=== PATIENT | male | born 1990 | race Caucasian/White ===

== ENCOUNTER 2017-04-04 00:14 | Emergency (ER) | payer SELFPAY ==
[~2017-04-04] VITALS: Ht 182.9 cm; Wt 68.2 kg
[~2017-04-04 00:14] MED LIST: ADDERALL 30 MG30 MG PO; ADDERALL XR30 MG PO; ADDERALL30 MG PO; ALEVE 220MG220 MG PO; BACLOFEN10 M1 PO; BACTRIM 400 MG-1 TAB; BACTRIM DS 8001 TAB PO; CARAFATE1 GM PO; CEPHALEXIN500 M1 PO; CIPRO 500MG TA500 MG PO; CLEOCIN HC150 MG/CAP PO; CLEOCIN HCL300 MG PO; CLINDAMYCIN300 MG PO; ED NORCO 56 UDTAB/BO PO; FLEXERIL 1010 MG/TAB PO; FLEXERIL10 MG PO; FLOMAX0.4 MG PO; GABLOFEN0.05 MG/ML; GOOD NEIGHBOR200 M1 PO; IBUPAIN-200200 MG PO; KETOROLAC10 MG PO; KLONOPIN 1MG1 MG PO; LIORESAL 1010 MG/TAB PO; MIRALAX17 GM/DOSE PO; MOTRIN 800800 MG/TAB PO; NORCO 325 MG-51 TA1 PO; NORCO 325 MG-51 TAB PO; NORCO 325 MG-7.1 TAB PO; PERCOCET 325 MG1 TA2 PO; PERCOCET 325 MG1 TA4 PO; PERCOCET 325 MG1 TA5 PO; PRILOSEC 20MG20 MG; PRILOSEC 20MG20 MG PO; SENOKOT-S TAB1 UDTAB PO; SKELAXIN 4400 MG/TAB PO; SKELAXIN400 MG PO; TORADOL10 MG PO; TYLENOL 500MG500 MG PO; TYLENOL PM EXTR1 CAP PO; ULTRAM 50MG TAB50 MG PO; VENTOLIN0.09 MG IH; XANAX0.5 MG PO; ZOFRAN ODT8 MG PO
[2017-04-04 02:53] VITALS: BP 124/80
== END 2017-04-04 02:53 | disposition home or self-care (01) ==
LOC: ED 00:14
DX: R07.89 Other chest pain (principal); F15.10 Other stimulant abuse, uncomplicated; M79.605 Pain in left leg; M79.604 Pain in right leg; G89.29 Other chronic pain; F20.9 Schizophrenia, unspecified; R11.0 Nausea; R00.2 Palpitations; R53.1 Weakness; R42 Dizziness and giddiness; R06.02 Shortness of breath; F17.200 Nicotine dependence, unspecified, uncomplicated; R10.812 Left upper quadrant abdominal tenderness; R10.811 Right upper quadrant abdominal tenderness
CPT/HCPCS: J1885

== ENCOUNTER 2017-04-11 04:41 | Emergency (ER) | payer SELFPAY ==
[~2017-04-11] VITALS: Ht 182.9 cm; Wt 68.2 kg
[2017-04-11 05:56] VITALS: BP 131/91
== END 2017-04-11 05:56 | disposition home or self-care (01) ==
LOC: ED 04:41
DX: R42 Dizziness and giddiness (principal); T42.4X5A Adverse effect of benzodiazepines, initial encounter; F32.9 Major depressive disorder, single episode, unspecified; F41.9 Anxiety disorder, unspecified; F20.9 Schizophrenia, unspecified

== ENCOUNTER 2017-08-19 01:37 | Emergency (ER) | payer SELFPAY ==
[~2017-08-19] VITALS: Ht 182.9 cm; Wt 68.3 kg
[2017-08-19] MEDS ORDERED: KLONOPIN 1MG1 MG PO (02:19)
[2017-08-19 02:25] VITALS: BP 120/73
== END 2017-08-19 02:20 | disposition home or self-care (01) ==
LOC: ED 01:37
DX: R11.0 Nausea (principal); T42.4X6A Underdosing of benzodiazepines, initial encounter; Z91.138 Patient's unintentional underdosing of medication regimen for other reason; R20.2 Paresthesia of skin; Z76.0 Encounter for issue of repeat prescription; F32.9 Major depressive disorder, single episode, unspecified; G89.29 Other chronic pain

== ENCOUNTER 2017-10-11 19:16 | Emergency (ER) | payer SELFPAY ==
[~2017-10-11] VITALS: Ht 182.9 cm; Wt 68.2 kg
[2017-10-11 20:12] LABS: URINE APPEARANCE CLEAR; URINE BILIRUBIN NEGATIVE (NEGATIVE); URINE BLOOD NEGATIVE (NEGATIVE); URINE COLOR YELLOW; URINE GLUCOSE NEGATIVE (NEGATIVE); URINE KETONE NEGATIVE (NEGATIVE); URINE LEUKOCYTE ESTERASE NEGATIVE (NEGATIVE); URINE NITRATE NEGATIVE (NEGATIVE); URINE PROTEIN(semi-quant) NEGATIVE (NEGATIVE); URINE UROBILINOGEN NORMAL (NORMAL); URINE WBC 0-1 /hpf (0-3)
[2017-10-11 20:41] LABS: HEMATOCRIT 44.8 % (42.0-52.0); MEAN CELL VOLUME 94 fl (78-100); MEAN CORPUSCULAR HEMOGLOBIN 31 pg (27-31); MEAN CORPUSCULAR HGB CONC 34 g/dL (33-37); MEAN PLATELET VOLUME 9.4 fl (7.4-10.4); PLATELET COUNT 279 K/mm3 (130-400); RED BLOOD COUNT 4.77 M/mm3 (4.20-5.60); RED CELL DISTRIBUTION WIDTH 12.9 % (11.5-14.5); WHITE BLOOD COUNT 6.5 K/mm3 (4.8-10.8)
[2017-10-11 21:17] LABS: LYMPHOCYTE 15 % (20-51); NEUTROPHILS 73 % (42-75)
[2017-10-11 21:18] LABS: ALBUMIN 3.3 g/dL (3.5-5.0); CALCIUM 8.1 mg/dL (8.4-10.2); POTASSIUM 4.2 mmol/L (3.6-5.0); TOTAL BILIRUBIN 0.3 mg/dL (0.2-1.3); TOTAL PROTEIN 5.7 g/dL (6.3-8.2)
[2017-10-11 21:18] LABS: MONOCYTE 9 % (3-10)
[2017-10-11 21:56] VITALS: BP 110/80
== END 2017-10-11 21:56 | disposition home or self-care (01) ==
LOC: ED 19:16
PROVIDERS: Nurse Practitioner Primary Care
DX: N23 Unspecified renal colic (principal); Z87.442 Personal history of urinary calculi; F32.9 Major depressive disorder, single episode, unspecified; F20.9 Schizophrenia, unspecified; Z88.0 Allergy status to penicillin; F17.200 Nicotine dependence, unspecified, uncomplicated; Z88.5 Allergy status to narcotic agent; Z88.8 Allergy status to other drugs, medicaments and biological substances
CPT/HCPCS: J1885; J2270; J7030; Q9967

== ENCOUNTER 2017-10-30 09:03 | Emergency (ER) | payer SELFPAY ==
[2017-10-30] MEDS ORDERED: CLEOCIN HCL300 MG PO (09:53)
[2017-10-30 10:31] VITALS: BP 128/79
== END 2017-10-30 10:05 | disposition home or self-care (01) ==
LOC: ED 09:03
DX: K04.6 Periapical abscess with sinus (principal); Z88.5 Allergy status to narcotic agent; Z88.0 Allergy status to penicillin; Z88.8 Allergy status to other drugs, medicaments and biological substances; F99 Mental disorder, not otherwise specified

== ENCOUNTER 2017-12-21 19:56 | Emergency (ER) | payer SELFPAY ==
[~2017-12-21] VITALS: Ht 182.9 cm; Wt 70.3 kg
[2017-12-21 21:26] VITALS: BP 114/82
== END 2017-12-21 21:26 | disposition home or self-care (01) ==
LOC: ED 19:56
DX: S61.412A Laceration without foreign body of left hand, initial encounter (principal); W26.0XXA Contact with knife, initial encounter; Y92.009 Unspecified place in unspecified non-institutional (private) residence as the place of occurrence of the external cause; Z88.0 Allergy status to penicillin; Z88.8 Allergy status to other drugs, medicaments and biological substances; Z88.5 Allergy status to narcotic agent; Z87.11 Personal history of peptic ulcer disease; F32.9 Major depressive disorder, single episode, unspecified; F20.9 Schizophrenia, unspecified

== ENCOUNTER 2018-05-01 13:47 | Emergency (ER) | payer SELFPAY ==
[~2018-05-01] VITALS: Ht 182.9 cm; Wt 68.2 kg
[2018-05-01] MEDS ORDERED: DEXTROAMPH SACC30 MG PO (13:56)
[2018-05-01 14:57] LABS: BASO # 0.1 (0.02-0.10); EOS # 0.2 (0.04-0.40); EOS % 3.8 % (0.0-4.0); HEMATOCRIT 43.5 % (42.0-52.0); HEMOGLOBIN 15.2 g/dL (13.5-18.0); LYMPH# 1.5 (1.50-4.00); MEAN CELL VOLUME 93 fl (78-100); MEAN CORPUSCULAR HEMOGLOBIN 32 pg (27-31); MEAN CORPUSCULAR HGB CONC 35 g/dL (33-37); MEAN PLATELET VOLUME 9.6 fl (7.4-10.4); MONO # 0.6 (0.20-0.80); NEU # 2.7 (1.40-6.50); PLATELET COUNT 289 K/mm3 (130-400); RED CELL DISTRIBUTION WIDTH 12.5 % (11.5-14.5)
[2018-05-01 15:04] LABS: ALBUMIN 3.6 g/dL (3.5-5.0); BUN/CREATININE RATIO 9.4 (6.0-26.0); CALCIUM 8.6 mg/dL (8.4-10.2); TOTAL BILIRUBIN 0.3 mg/dL (0.2-1.3); TOTAL PROTEIN 6.1 g/dL (6.3-8.2)
[2018-05-01] MEDS ORDERED: ZOFRAN ODT4 MG PO (16:37)
[2018-05-01 17:16] VITALS: BP 114/71
== END 2018-05-01 17:00 | disposition home or self-care (01) ==
LOC: ED 13:47
PROVIDERS: Nurse Practitioner Primary Care
DX: R11.2 Nausea with vomiting, unspecified (principal); F17.200 Nicotine dependence, unspecified, uncomplicated; Z79.899 Other long term (current) drug therapy
CPT/HCPCS: J2405; J7030

== ENCOUNTER 2018-08-01 01:44 | Emergency (ER) | payer SELFPAY ==
[~2018-08-01 01:44] MED LIST changes: +DEXTROAMPH SACC30 MG PO; +ZOFRAN ODT4 MG PO
[2018-08-01] MEDS ORDERED: CLINDAMYCIN 300MG PO (02:22)
[2018-08-01 02:25] VITALS: BP 119/79
[2018-08-02] MEDS ORDERED: CLEOCIN HCL300 MG PO (01:07)
[2018-08-02] MEDS ORDERED: PROMETHAZINE12.5 M5 PO (01:50)
== END 2018-08-01 02:25 | disposition home or self-care (01) ==
LOC: ED 01:44
DX: K04.6 Periapical abscess with sinus (principal); K02.63 Dental caries on smooth surface penetrating into pulp; F17.200 Nicotine dependence, unspecified, uncomplicated; F20.9 Schizophrenia, unspecified; F32.9 Major depressive disorder, single episode, unspecified; Z79.899 Other long term (current) drug therapy; Z88.0 Allergy status to penicillin

== ENCOUNTER 2018-08-02 00:49 | Emergency (ER) | payer SELFPAY ==
[~2018-08-02] VITALS: Ht 182.9 cm; Wt 68.2 kg
[~2018-08-02 00:49] MED LIST changes: +CLINDAMYCIN 300MG PO
[2018-08-02 01:05] VITALS: BP 119/77
[2018-08-02] MEDS ORDERED: CLEOCIN HCL300 MG PO (01:07)
[2018-08-02] MEDS ORDERED: PROMETHAZINE12.5 M5 PO (01:50)
== END 2018-08-02 01:58 | disposition home or self-care (01) ==
LOC: ED 00:49
DX: B34.9 Viral infection, unspecified (principal); K02.9 Dental caries, unspecified; F32.9 Major depressive disorder, single episode, unspecified; F20.9 Schizophrenia, unspecified; F17.200 Nicotine dependence, unspecified, uncomplicated
CPT/HCPCS: J2550

== ENCOUNTER 2018-11-09 00:42 | Emergency (ER) | payer SELFPAY ==
[~2018-11-09 00:42] MED LIST changes: +PROMETHAZINE12.5 M5 PO
[2018-11-09 00:45] VITALS: BP 112/81
[2018-11-09] MEDS ORDERED: NORCO 325 MG-51 TA1 PO (01:25)
[2018-11-09] MEDS ORDERED: CLEOCIN HCL300 MG PO (01:25)
== END 2018-11-09 01:35 | disposition home or self-care (01) ==
LOC: ED 00:42
DX: K02.9 Dental caries, unspecified (principal); K05.219 Aggressive periodontitis, localized, unspecified severity; K05.10 Chronic gingivitis, plaque induced; K25.9 Gastric ulcer, unspecified as acute or chronic, without hemorrhage or perforation; F17.210 Nicotine dependence, cigarettes, uncomplicated

== ENCOUNTER 2019-05-02 00:18 | Emergency (ER) | payer MEDICAID ==
[~2019-05-02 00:18] MED LIST changes: +AMPHETAMINE SAL15 M1 PO; +CIPRO500 M1 PO; +ONDANSETRON ODT8 MG PO
[2019-05-02] MEDS ORDERED: BUSPAR 15MG TAB15 MG PO (00:45)
[2019-05-02] MEDS ORDERED: CEPHALEXIN500 M1 PO (01:18)
[2019-05-02 01:30] VITALS: BP 118/85
== END 2019-05-02 01:30 | disposition home or self-care (01) ==
LOC: ED 00:18
DX: K02.9 Dental caries, unspecified (principal); F32.9 Major depressive disorder, single episode, unspecified; F20.9 Schizophrenia, unspecified; F17.210 Nicotine dependence, cigarettes, uncomplicated
CPT/HCPCS: J1885

== ENCOUNTER 2020-01-30 19:53 | Emergency (ER) | payer MEDICAID ==
[~2020-01-30 19:53] MED LIST changes: +BUSPAR 15MG TAB15 MG PO
[2020-01-30 21:02] LABS: EOS # 0.2 (0.04-0.40); HEMATOCRIT 40.8 % (42.0-52.0); HEMOGLOBIN 13.8 g/dL (13.5-18.0); LYMPH# 1.5 (1.50-4.00); MEAN CELL VOLUME 93 fl (78-100); MEAN CORPUSCULAR HEMOGLOBIN 32 pg (27-31); MEAN CORPUSCULAR HGB CONC 34 g/dL (33-37); MONO # 0.8 (0.20-0.80); NEU # 4.4 (1.40-6.50); PLATELET COUNT 290 K/mm3 (130-400); RED BLOOD COUNT 4.38 M/mm3 (4.20-5.60); RED CELL DISTRIBUTION WIDTH 12.8 % (11.5-14.5); WHITE BLOOD COUNT 6.9 K/mm3 (4.8-10.8)
[2020-01-30 21:16] LABS: ALBUMIN 4.2 g/dL (3.5-5.0); POTASSIUM 3.8 mmol/L (3.5-5.1)
[2020-01-30 21:17] LABS: CALCIUM 9.8 mg/dL (8.3-10.5)
[2020-01-30 21:18] LABS: TOTAL PROTEIN 6.4 g/dL (6.4-8.3)
[2020-01-30 21:20] LABS: TOTAL BILIRUBIN 0.3 mg/dL (0.2-1.2)
[2020-01-30 22:04] LABS: URINE APPEARANCE CLOUDY; URINE BILIRUBIN NEGATIVE (NEGATIVE); URINE BLOOD 250 ery/uL (NEGATIVE); URINE COLOR BLOODY; URINE GLUCOSE NEGATIVE (NEGATIVE); URINE KETONE NEGATIVE (NEGATIVE); URINE LEUKOCYTE ESTERASE TRACE (NEGATIVE); URINE NITRATE NEGATIVE (NEGATIVE); URINE PROTEIN(semi-quant) TRACE mg/dL (NEGATIVE); URINE UROBILINOGEN NORMAL (NORMAL)
[2020-01-30 23:40] VITALS: BP 118/71
== END 2020-01-30 23:40 | disposition home or self-care (01) ==
LOC: ED 19:53
PROVIDERS: Nurse Practitioner Family
DX: N23 Unspecified renal colic (principal); F20.9 Schizophrenia, unspecified; F32.9 Major depressive disorder, single episode, unspecified; F17.210 Nicotine dependence, cigarettes, uncomplicated; Z88.0 Allergy status to penicillin; Z87.442 Personal history of urinary calculi
CPT/HCPCS: J1885; J2270; J2405; J7030

== ENCOUNTER 2020-06-04 16:30 | Emergency (ER) | payer MEDICAID ==
[2020-06-04 17:06] LABS: BASO # 0.1 (0.02-0.10); EOS # 0.3 (0.04-0.40); EOS % 4.8 % (0.0-4.0); HEMOGLOBIN 16.7 g/dL (13.5-18.0); LYMPH# 1.1 (1.50-4.00); MEAN CELL VOLUME 91 fl (78-100); MEAN CORPUSCULAR HEMOGLOBIN 31 pg (27-31); MEAN CORPUSCULAR HGB CONC 34 g/dL (33-37); MONO # 0.6 (0.20-0.80); NEU # 3.3 (1.40-6.50); PLATELET COUNT 312 K/mm3 (130-400); RED BLOOD COUNT 5.36 M/mm3 (4.20-5.60); RED CELL DISTRIBUTION WIDTH 12.6 % (11.5-14.5); WHITE BLOOD COUNT 5.2 K/mm3 (4.8-10.8)
[2020-06-04 17:15] LABS: ALBUMIN 4.5 g/dL (3.5-5.0)
[2020-06-04 17:16] LABS: POTASSIUM 4.3 mmol/L (3.5-5.1); SODIUM 140 mmol/L (136-145)
[2020-06-04 17:17] LABS: CALCIUM 9.2 mg/dL (8.3-10.5)
[2020-06-04 17:18] LABS: GLUCOSE 96 mg/dL (75-110); TOTAL PROTEIN 7.3 g/dL (6.4-8.3)
[2020-06-04 17:19] LABS: CARBON DIOXIDE 27 mmol/L (22-29)
[2020-06-04 17:20] LABS: TOTAL BILIRUBIN 0.2 mg/dL (0.2-1.2)
[2020-06-04 17:23] LABS: AST-SGOT 20 U/L (5-34)
[2020-06-04 17:25] LABS: ALT/SGPT 35 U/L (0-55)
[2020-06-04 17:31] LABS: TROPONIN-I < 0.03 ng/mL (<0.030)
[2020-06-04 18:03] VITALS: BP 108/81
== END 2020-06-04 18:08 | disposition home or self-care (01) ==
LOC: ED 16:30
PROVIDERS: Nurse Practitioner Family
DX: R06.02 Shortness of breath (principal); F41.9 Anxiety disorder, unspecified; F17.210 Nicotine dependence, cigarettes, uncomplicated

== ENCOUNTER 2020-06-23 03:15 | Emergency (ER) | payer MEDICAID ==
[~2020-06-23] VITALS: Ht 182.9 cm; Wt 75.1 kg
[2020-06-23 03:21] VITALS: BP 133/94
[2020-06-23 03:57] LABS: BASO # 0.1 (0.02-0.10); EOS # 0.3 (0.04-0.40); EOS % 4.4 % (0.0-4.0); HEMATOCRIT 47.4 % (42.0-52.0); HEMOGLOBIN 16.5 g/dL (13.5-18.0); LYMPH# 1.8 (1.50-4.00); MEAN CELL VOLUME 92 fl (78-100); MEAN CORPUSCULAR HEMOGLOBIN 32 pg (27-31); MEAN CORPUSCULAR HGB CONC 35 g/dL (33-37); MEAN PLATELET VOLUME 9.1 fl (7.4-10.4); MONO # 0.8 (0.20-0.80); NEU # 3.9 (1.40-6.50); PLATELET COUNT 331 K/mm3 (130-400); RED BLOOD COUNT 5.13 M/mm3 (4.20-5.60); RED CELL DISTRIBUTION WIDTH 12.9 % (11.5-14.5); WHITE BLOOD COUNT 6.9 K/mm3 (4.8-10.8)
[2020-06-23 04:00] LABS: ALBUMIN 4.4 g/dL (3.5-5.0); POTASSIUM 4.2 mmol/L (3.5-5.1)
[2020-06-23 04:01] LABS: CALCIUM 9.6 mg/dL (8.3-10.5)
[2020-06-23 04:03] LABS: TOTAL PROTEIN 6.9 g/dL (6.4-8.3)
[2020-06-23 04:04] LABS: TOTAL BILIRUBIN 0.2 mg/dL (0.2-1.2)
[2020-06-23 04:08] LABS: URINE APPEARANCE HAZY; URINE COLOR YELLOW
[2020-06-23 04:09] LABS: PH-URINE 6.5 (5.0 - 8.0); URINE BILIRUBIN NEGATIVE (NEGATIVE); URINE BLOOD TRACE (NEGATIVE); URINE GLUCOSE NEGATIVE (NEGATIVE); URINE KETONE NEGATIVE (NEGATIVE); URINE LEUKOCYTE ESTERASE TRACE (NEGATIVE); URINE NITRATE NEGATIVE (NEGATIVE); URINE PROTEIN(semi-quant) TRACE mg/dL (NEGATIVE); URINE UROBILINOGEN NORMAL (NORMAL)
[2020-06-23 04:10] LABS: URINE MUCUS PRESENT (NOT PRESENT)
== END 2020-06-23 06:01 | disposition left against medical advice (07) ==
LOC: ED 03:15
PROVIDERS: Nurse Practitioner
DX: R10.9 Unspecified abdominal pain (principal); F17.200 Nicotine dependence, unspecified, uncomplicated; Z53.21 Procedure and treatment not carried out due to patient leaving prior to being seen by health care provider; Z88.0 Allergy status to penicillin; Z88.6 Allergy status to analgesic agent; Z88.8 Allergy status to other drugs, medicaments and biological substances
CPT/HCPCS: J1885; J2405; J3010; J7030

== ENCOUNTER 2021-03-11 20:14 | Emergency (ER) | payer MEDICAID ==
[2021-03-11] MEDS ORDERED: CLEOCIN HCL300 MG PO (21:07)
[2021-03-11 21:16] VITALS: BP 117/84
== END 2021-03-11 21:16 | disposition home or self-care (01) ==
LOC: ED 20:14
DX: K04.7 Periapical abscess without sinus (principal); F32.9 Major depressive disorder, single episode, unspecified; F20.9 Schizophrenia, unspecified; F17.210 Nicotine dependence, cigarettes, uncomplicated; Z79.899 Other long term (current) drug therapy

== ENCOUNTER 2021-07-10 20:22 | Emergency (ER) | payer MEDICAID ==
[~2021-07-10] VITALS: Ht 185.4 cm; Wt 81.6 kg
[2021-07-10 20:27] VITALS: BP 126/90
[2021-07-10] MEDS ORDERED: PERCOCET 325 MG1 TA2 PO (20:36)
[2021-07-10 21:01] LABS: BASO # 0.04 K/mm3 (0.02-0.10); EOS # 0.28 K/mm3 (0.04-0.40); EOS % 4.6 % (0.0-4.0); HEMATOCRIT 41.5 % (42.0-52.0); HEMOGLOBIN 14.1 g/dL (13.5-18.0); LYMPH# 1.46 K/mm3 (1.50-4.00); MEAN CELL VOLUME 95 fl (78-100); MEAN CORPUSCULAR HEMOGLOBIN 32 pg (27-31); MEAN CORPUSCULAR HGB CONC 34 g/dL (33-37); MEAN PLATELET VOLUME 9.1 fl (7.4-10.4); MONO # 0.71 K/mm3 (0.20-0.80); PLATELET COUNT 295 K/mm3 (130-400); RED BLOOD COUNT 4.37 M/mm3 (4.20-5.60); RED CELL DISTRIBUTION WIDTH 12.7 % (11.5-14.5); WHITE BLOOD COUNT 6.1 K/mm3 (4.8-10.8)
[2021-07-10 21:09] LABS: ALBUMIN 3.8 g/dL (3.5-5.0); POTASSIUM 4.5 mmol/L (3.5-5.1)
[2021-07-10 21:11] LABS: CALCIUM 9.4 mg/dL (8.3-10.5)
[2021-07-10 21:12] LABS: TOTAL PROTEIN 6.4 g/dL (6.4-8.3)
[2021-07-10 21:14] LABS: TOTAL BILIRUBIN 0.2 mg/dL (0.2-1.2)
[2021-07-10 23:08] LABS: URINE APPEARANCE CLOUDY; URINE BILIRUBIN NEGATIVE (NEGATIVE); URINE BLOOD 250 ery/uL (NEGATIVE); URINE COLOR AMBER; URINE GLUCOSE NEGATIVE (NEGATIVE); URINE KETONE NEGATIVE (NEGATIVE); URINE NITRATE NEGATIVE (NEGATIVE); URINE PROTEIN(semi-quant) 1+ mg/dL (NEGATIVE); URINE UROBILINOGEN NORMAL (NORMAL)
[2021-07-10 23:09] LABS: URINE LEUKOCYTE ESTERASE NEGATIVE (NEGATIVE)
== END 2021-07-10 23:29 | disposition home or self-care (01) ==
LOC: ED 20:22
PROVIDERS: Nurse Practitioner
DX: N13.2 Hydronephrosis with renal and ureteral calculous obstruction (principal); F32.A Depression, unspecified; F20.9 Schizophrenia, unspecified; Z79.899 Other long term (current) drug therapy
CPT/HCPCS: J2270; J2550

== ENCOUNTER 2022-02-02 01:39 | Emergency (ER) | payer MEDICAID ==
[~2022-02-02] VITALS: Ht 185.4 cm; Wt 81.3 kg
[2022-02-02] MEDS ORDERED: IBU400 MG PO (02:04)
[2022-02-02] MEDS ORDERED: CALCIUM CARBONATE (02:04)
[2022-02-02 02:50] LABS: BASO # 0.06 K/mm3 (0.02-0.10); EOS # 0.25 K/mm3 (0.04-0.40); EOS % 3.7 % (0.0-4.0); HEMATOCRIT 42.6 % (42.0-52.0); HEMOGLOBIN 14.5 g/dL (13.5-18.0); LYMPH# 1.44 K/mm3 (1.50-4.00); MEAN CELL VOLUME 93 fl (78-100); MEAN CORPUSCULAR HEMOGLOBIN 32 pg (27-31); MEAN CORPUSCULAR HGB CONC 34 g/dL (33-37); MEAN PLATELET VOLUME 8.8 fl (7.4-10.4); MONO # 0.66 K/mm3 (0.20-0.80); NEU # 4.38 K/mm3 (1.40-6.50); PLATELET COUNT 306 K/mm3 (130-400); RED BLOOD COUNT 4.58 M/mm3 (4.20-5.60); RED CELL DISTRIBUTION WIDTH 12.8 % (11.5-14.5); WHITE BLOOD COUNT 6.8 K/mm3 (4.8-10.8)
[2022-02-02 02:59] LABS: ALBUMIN 4.2 g/dL (3.5-5.0)
[2022-02-02 03:00] LABS: CALCIUM 9.2 mg/dL (8.3-10.5)
[2022-02-02 03:03] LABS: TOTAL BILIRUBIN 0.3 mg/dL (0.2-1.2)
[2022-02-02] MEDS ORDERED: CIPRO500 M1 PO ×2 (03:32)
[2022-02-02 04:40] VITALS: BP 118/78
== END 2022-02-02 03:50 | disposition home or self-care (01) ==
LOC: ED 01:39
PROVIDERS: Physician Assistant
DX: F41.9 Anxiety disorder, unspecified (principal); N39.0 Urinary tract infection, site not specified; F17.210 Nicotine dependence, cigarettes, uncomplicated; Z28.310 Unvaccinated for COVID-19

== ENCOUNTER 2022-04-11 12:20 | Emergency (ER) | payer SELFPAY ==
[~2022-04-11 12:20] MED LIST changes: +CALCIUM CARBONATE; +IBU400 MG PO
[2022-04-11 12:28] VITALS: BP 128/82
[2022-04-11 12:47] LABS: BASO # 0.07 K/mm3 (0.02-0.10); EOS # 0.32 K/mm3 (0.04-0.40); EOS % 4.7 % (0.0-4.0); HEMATOCRIT 43.2 % (42.0-52.0); HEMOGLOBIN 14.8 g/dL (13.5-18.0); LYMPH# 1.69 K/mm3 (1.50-4.00); MEAN CELL VOLUME 93 fl (78-100); MEAN CORPUSCULAR HEMOGLOBIN 32 pg (27-31); MEAN CORPUSCULAR HGB CONC 34 g/dL (33-37); MEAN PLATELET VOLUME 9.1 fl (7.4-10.4); MONO # 0.65 K/mm3 (0.20-0.80); NEU # 4.07 K/mm3 (1.40-6.50); PLATELET COUNT 293 K/mm3 (130-400); RED BLOOD COUNT 4.65 M/mm3 (4.20-5.60); RED CELL DISTRIBUTION WIDTH 12.3 % (11.5-14.5); WHITE BLOOD COUNT 6.8 K/mm3 (4.8-10.8)
[2022-04-11 12:51] LABS: ALBUMIN 4.2 g/dL (3.5-5.0); POTASSIUM 3.4 mmol/L (3.5-5.1)
[2022-04-11 12:54] LABS: TOTAL PROTEIN 6.4 g/dL (6.4-8.3)
[2022-04-11 12:55] LABS: CALCIUM 9.3 mg/dL (8.3-10.5)
[2022-04-11 12:56] LABS: TOTAL BILIRUBIN 0.5 mg/dL (0.2-1.2)
[2022-04-11 13:24] LABS: URINE WBC 0 /hpf (0-3)
[2022-04-11 13:44] LABS: URINE COLOR BROWN
[2022-04-11 13:45] LABS: URINE APPEARANCE CLOUDY; URINE BILIRUBIN NEGATIVE (NEGATIVE); URINE BLOOD 250 ery/uL (NEGATIVE); URINE GLUCOSE NEGATIVE (NEGATIVE); URINE KETONE NEGATIVE (NEGATIVE); URINE LEUKOCYTE ESTERASE NEGATIVE (NEGATIVE); URINE NITRATE NEGATIVE (NEGATIVE); URINE PROTEIN(semi-quant) 1+ (NEGATIVE); URINE UROBILINOGEN NORMAL (NORMAL)
[2022-04-11] MEDS ORDERED: FLOMAX0.4 MG PO (14:34)
[2022-04-11] MEDS ORDERED: PHENERGAN 25 TA25 MG PO (14:35)
[2022-04-11] MEDS ORDERED: NORCO 325 MG-51 TA1 PO ×2 (14:37→14:46)
== END 2022-04-11 14:56 | disposition home or self-care (01) ==
LOC: ED 12:20
PROVIDERS: Nurse Practitioner
DX: N20.0 Calculus of kidney (principal); Z79.891 Long term (current) use of opiate analgesic; Z20.822 Contact with and (suspected) exposure to COVID-19; Z28.310 Unvaccinated for COVID-19
CPT/HCPCS: J1885; J2405; J7030; Q9967

== ENCOUNTER 2023-08-28 17:30 | Emergency (ER) | payer SELFPAY ==
[~2023-08-28 17:30] MED LIST changes: +PHENERGAN 25 TA25 MG PO
[2023-09-13] MEDS ORDERED: ZITHROMAX Z PA250 MG PO (15:34)
[2023-09-14] MEDS ORDERED: PERIDEX473 ML MM (01:54)
== END 2023-08-28 17:40 | disposition left against medical advice (07) ==
LOC: ED 17:30
DX: R46.89 Other symptoms and signs involving appearance and behavior (principal)

== ENCOUNTER 2024-01-23 14:59 | Emergency (ER) | payer SELFPAY ==
[~2024-01-23] VITALS: Ht 190.5 cm; Wt 80.4 kg
[~2024-01-23 14:59] MED LIST changes: +PERIDEX473 ML MM; +ZITHROMAX Z PA250 MG PO
[2024-01-23] MEDS ORDERED: OXYCODONE HCL10 M1 PO (15:10)
[2024-01-23] MEDS ORDERED: CLINDAMYCIN 300MG PO (15:10)
[2024-01-23] MEDS ORDERED: ZOFRAN ODT4 MG PO (15:43)
[2024-01-23 15:53] VITALS: BP 119/85
== END 2024-01-23 15:54 | disposition home or self-care (01) ==
LOC: ED 14:59
DX: K12.2 Cellulitis and abscess of mouth (principal); R11.0 Nausea; Z88.0 Allergy status to penicillin

== ENCOUNTER 2024-01-24 10:46 | Emergency (ER) | payer SELFPAY ==
[~2024-01-24] VITALS: Ht 190.5 cm; Wt 80.5 kg
[~2024-01-24 10:46] MED LIST changes: +OXYCODONE HCL10 M1 PO
[2024-01-24] MEDS ORDERED: oxyCODONE/Acetaminophen 10-325 MG TAB PO ONE (11:30)
[2024-01-24 12:16] VITALS: BP 125/93
[2024-01-25] MEDS ORDERED: CLINDAMYCIN 300MG PO (15:03)
[2024-01-25] MEDS ORDERED: METRONIDAZOLE500 M1 PO (15:03)
[2024-01-25] MEDS ORDERED: KETOROLAC10 MG PO (15:04)
[2024-01-25] MEDS ORDERED: ZOFRAN ODT4 MG PO (15:04)
[2024-01-25] MEDS ORDERED: LIDOCAINE HCL100 M2 MM (15:07)
== END 2024-01-24 12:18 | disposition home or self-care (01) ==
LOC: ED 10:46
DX: K04.7 Periapical abscess without sinus (principal)

== ENCOUNTER 2024-01-24 20:17 | Inpatient (IN) | payer SELFPAY ==
[~2024-01-24] VITALS: Ht 190.5 cm; Wt 82.6 kg
[2024-01-24] MEDS ORDERED: NS 1,000 ML IV ONE (20:45)
[2024-01-24 20:57] LABS: BASO # 0.05 K/mm3 (0.02-0.10); EOS # 0.15 K/mm3 (0.04-0.40); EOS % 1.4 % (0.0-4.0); HEMATOCRIT 42.9 % (42.0-52.0); HEMOGLOBIN 14.4 g/dL (13.5-18.0); LYMPH# 1.35 K/mm3 (1.50-4.00); MEAN CELL VOLUME 92 fl (78-100); MEAN CORPUSCULAR HEMOGLOBIN 31 pg (27-31); MEAN CORPUSCULAR HGB CONC 34 g/dL (33-37); MEAN PLATELET VOLUME 8.6 fl (7.4-10.4); MONO # 0.93 K/mm3 (0.20-0.80); NEU # 8.31 K/mm3 (1.40-6.50); PLATELET COUNT 317 K/mm3 (130-400); RED BLOOD COUNT 4.65 M/mm3 (4.20-5.60); RED CELL DISTRIBUTION WIDTH 12.5 % (11.5-14.5); WHITE BLOOD COUNT 10.8 K/mm3 (4.8-10.8)
[2024-01-24 21:06] LABS: CALCIUM 9.5 mg/dL (8.3-10.5)
[2024-01-24 21:07] LABS: TOTAL PROTEIN 6.8 g/dL (6.4-8.3)
[2024-01-24 21:09] LABS: TOTAL BILIRUBIN 0.3 mg/dL (0.2-1.2)
[2024-01-24] MEDS ORDERED: Iohexol 300 - 10 ML VIAL IV ONE (21:22)
[2024-01-24] MEDS ORDERED: Cefepime 1 G in Water For Injection,Sterile 10 ML IV ONE (22:00)
[2024-01-24] MEDS ORDERED: oxyCODONE 5 MG TAB PO PRN (22:30)
[2024-01-24] MEDS ORDERED: Acetaminophen 325 MG TAB PO PRN (22:30)
[2024-01-24] MEDS ORDERED: Ketorolac 30 MG/ML VIAL IV SCH (22:30)
[2024-01-24] MEDS ORDERED: Naloxone 0.4 MG/ML VIAL IV PRN (22:30)
[2024-01-24] MEDS ORDERED: Polyethylene Glycol 3350 Powder 17 GM PACKET PO PRN (22:30)
[2024-01-24 22:40] VITALS: BP 134/93
[2024-01-24] MEDS ORDERED: Nicotine 7 MG DAILY PATCH TD ONE (22:45)
[2024-01-24] MEDS ORDERED: clonazePAM 0.5 MG TABLET PO PRN (22:45)
[2024-01-24 22:50] LABS: URINE WBC 0 /hpf (0-3)
[2024-01-24] MEDS ORDERED: Lidocaine 2% Viscous 15 ML UNIT DOSE CUP MM PRN (23:00)
[2024-01-24] MEDS ORDERED: NS 1,000 ML IV SCH (23:00)
[2024-01-24 23:09] LABS: URINE APPEARANCE CLEAR (CLEAR); URINE BILIRUBIN NEGATIVE (NEGATIVE); URINE BLOOD TRACE-INTACT (NEGATIVE); URINE COLOR YELLOW (YELLOW); URINE GLUCOSE NEGATIVE (NEGATIVE); URINE KETONE NEGATIVE (NEGATIVE); URINE LEUKOCYTE ESTERASE NEGATIVE (NEGATIVE); URINE NITRATE NEGATIVE (NEGATIVE); URINE PROTEIN(semi-quant) NEGATIVE (NEGATIVE)
[2024-01-24 23:10] LABS: URINE MUCUS PRESENT (NOT PRESENT)
--- NOTE | 2024-01-24 23:10 | NUR ---
PT ADMITTED FORM ED FOR ORAL ABCESS, PT AMBULATED TO ROOM, PT ARRIVED WITH IV IN LAC, IVFLUIDS INFUSING, PT STATED PAIN AT 7/10, PT A/OX4 ABLE TO MAKE NEEDS KNOWN. PT LEFT IN BED W FAMILY AT BEDSIDE, CALL LIGHT IN REACH. PT FAILED OUTPT TX, NEEDING IV ATBX.
[2024-01-25 05:28] VITALS: BP 134/78
--- NOTE | 2024-01-25 07:00 | NUR ---
RESUMED CARES FROM JACKLYN ROSS
--- NOTE | 2024-01-25 07:02 | NUR ---
REPORT GIVEN TO AURORA VILLASENOR
[2024-01-25] MEDS ORDERED: Cefepime 1 G in Water For Injection,Sterile 10 ML IV SCH ×2 (08:00→08:30)
--- NOTE | 2024-01-25 08:30 | NUR ---
ORDERED RECEIVED TO CONTINUE ABX TX
[2024-01-25 10:04] VITALS: BP 122/67
[2024-01-25] MEDS ORDERED: Nicotine 21 MG DAILY PATCH TD SCH (11:52)
[2024-01-25 14:11] VITALS: BP 127/87
--- NOTE | 2024-01-25 14:17 | NUR ---
Called [facility]. [phone] Spoke to the Dental front line leader. They need the packet completed . They need last two months of income. Or the Tax forms for 2022. Idalmis who is Shaan's mom is at the bedside and assist Shaan in completing the forms.
--- NOTE | 2024-01-25 14:44 | NUR ---
[facility] has received the documents sent secure email. Shaan has completed the online application. The Gyroscopic Engineering Technician would like Shaan to call at 8 am tomorrow and check to see what time his appointment is.
[2024-01-25] MEDS ORDERED: METRONIDAZOLE500 M1 PO (15:03)
[2024-01-25] MEDS ORDERED: CLINDAMYCIN 300MG PO (15:03)
[2024-01-25] MEDS ORDERED: ZOFRAN ODT4 MG PO (15:04)
[2024-01-25] MEDS ORDERED: KETOROLAC10 MG PO (15:04)
[2024-01-25] MEDS ORDERED: LIDOCAINE HCL100 M2 MM (15:07)
--- NOTE | 2024-01-25 15:32 | NUR ---
DISCHARG ORDERS RECEIVED, REVIEWED WITH PATIENT. PATIENT VERBALIZED UNDERSTANDING. ALL QUESTIONS ANSWERED. PATIENT DISCHARGED HOME VIA AMBULATION. ALL PATIENT ITEMS AND BELONGINGS SENT WITH PATIENT AT THIS TIME.
== END 2024-01-25 15:32 | disposition home or self-care (01) | DRG 872 ==
LOC: ED 20:17 → MED/SURG 21:53
PROVIDERS: ADMIT Family Medicine
DX: A41.9 Sepsis, unspecified organism (principal); F41.9 Anxiety disorder, unspecified; F17.200 Nicotine dependence, unspecified, uncomplicated; K04.7 Periapical abscess without sinus
CPT/HCPCS: J0692; J1836; J1885; J7030; Q9967

== ENCOUNTER 2024-05-01 19:21 | Emergency (ER) | payer MEDICAID ==
[~2024-05-01] VITALS: Ht 182.9 cm; Wt 84.0 kg
[~2024-05-01 19:21] MED LIST changes: +LIDOCAINE HCL100 M2 MM; +METRONIDAZOLE500 M1 PO
[2024-05-01] MEDS ORDERED: PREDNISONE20 MG PO (19:56)
[2024-05-01] MEDS ORDERED: MORGIDOX 1X100100 MG PO (19:56)
[2024-05-01] MEDS ORDERED: Lidocaine 2% Viscous 15 ML UNIT DOSE CUP MM ONE (20:00)
[2024-05-01] MEDS ORDERED: Doxycycline Monohydrate 100 MG CAP PO ONE (20:00)
[2024-05-01] MEDS ORDERED: predniSONE 20 MG TAB PO ONE (20:00)
[2024-05-01 20:08] VITALS: BP 118/88
== END 2024-05-01 20:08 | disposition home or self-care (01) ==
LOC: ED 19:21
DX: K04.7 Periapical abscess without sinus (principal); F17.210 Nicotine dependence, cigarettes, uncomplicated; Z88.0 Allergy status to penicillin
CPT/HCPCS: J7512

== ENCOUNTER 2024-06-15 23:48 | Emergency (ER) | payer MEDICAID ==
[~2024-06-15] VITALS: Ht 185.4 cm; Wt 83.6 kg
[~2024-06-15 23:48] MED LIST changes: +MORGIDOX 1X100100 MG PO; +PREDNISONE20 MG PO
[2024-06-16 01:02] LABS: BASO # 0.03 K/mm3 (0.02-0.10); EOS # 0.29 K/mm3 (0.04-0.40); EOS % 4.4 % (0.0-4.0); HEMATOCRIT 44.6 % (42.0-52.0); LYMPH# 1.46 K/mm3 (1.50-4.00); MEAN CELL VOLUME 93 fl (78-100); MEAN CORPUSCULAR HEMOGLOBIN 31 pg (27-31); MEAN CORPUSCULAR HGB CONC 34 g/dL (33-37); MEAN PLATELET VOLUME 8.9 fl (7.4-10.4); MONO # 0.69 K/mm3 (0.20-0.80); NEU # 4.12 K/mm3 (1.40-6.50); PLATELET COUNT 267 K/mm3 (130-400); RED BLOOD COUNT 4.81 M/mm3 (4.20-5.60); RED CELL DISTRIBUTION WIDTH 12.6 % (11.5-14.5); WHITE BLOOD COUNT 6.6 K/mm3 (4.8-10.8)
[2024-06-16 01:16] LABS: CALCIUM 9.3 mg/dL (8.3-10.5)
[2024-06-16 01:17] LABS: GLUCOSE 132 mg/dL (75-110)
[2024-06-16 01:18] LABS: CARBON DIOXIDE 24 mmol/L (22-29)
[2024-06-16 01:31] LABS: SODIUM 139 mmol/L (136-145)
[2024-06-16 01:47] VITALS: BP 113/81
== END 2024-06-16 01:49 | disposition home or self-care (01) ==
LOC: ED 23:48
PROVIDERS: Family Medicine
DX: R53.81 Other malaise (principal); R53.83 Other fatigue; K04.7 Periapical abscess without sinus; F41.0 Panic disorder [episodic paroxysmal anxiety]; F17.210 Nicotine dependence, cigarettes, uncomplicated; Z88.0 Allergy status to penicillin; Z20.822 Contact with and (suspected) exposure to COVID-19

== ENCOUNTER 2024-06-18 05:07 | Emergency (ER) | payer MEDICAID ==
[~2024-06-18] VITALS: Ht 188 cm; Wt 90.8 kg
[2024-06-18 05:13] VITALS: BP 132/89
== END 2024-06-18 05:39 | disposition home or self-care (01) ==
LOC: ED 05:07
DX: F41.9 Anxiety disorder, unspecified (principal)

== ENCOUNTER 2024-09-03 14:32 | Emergency (ER) | payer MEDICAID ==
[~2024-09-03] VITALS: Ht 190.5 cm; Wt 84.0 kg
[2024-09-03] MEDS ORDERED: Tdap Vaccine 0.5 ML SYRINGE IM ONE (14:45)
[2024-09-03] MEDS ORDERED: CEPHALEXIN500 M1 PO (16:53)
[2024-09-03] MEDS ORDERED: NORCO 325 MG-51 TA1 PO (16:53)
[2024-09-03 16:55] VITALS: BP 120/90
[2024-09-03] MEDS ORDERED: Cephalexin 500 MG CAP PO ONE (17:00)
[2024-09-04] MEDS ORDERED: ULTRA LIDO60 GM TP (23:53)
[2024-09-04] MEDS ORDERED: ENDOCET 5-3251 EACH PO (23:53)
== END 2024-09-03 17:05 | disposition home or self-care (01) ==
LOC: ED 14:32
DX: S61.211A Laceration without foreign body of left index finger without damage to nail, initial encounter (principal); Z23 Encounter for immunization; Z88.6 Allergy status to analgesic agent; W22.8XXA Striking against or struck by other objects, initial encounter; Y92.009 Unspecified place in unspecified non-institutional (private) residence as the place of occurrence of the external cause
CPT/HCPCS: 90715

== ENCOUNTER 2024-09-04 23:04 | Emergency (ER) | payer MEDICAID ==
[2024-09-04] MEDS ORDERED: oxyCODONE/Acetaminophen 10-325 MG TAB PO ONE (23:45)
[2024-09-04] MEDS ORDERED: ULTRA LIDO60 GM TP (23:53)
[2024-09-04] MEDS ORDERED: ENDOCET 5-3251 EACH PO (23:53)
[2024-09-05 00:04] VITALS: BP 122/108
== END 2024-09-05 00:04 | disposition home or self-care (01) ==
LOC: ED 23:04
DX: S61.211A Laceration without foreign body of left index finger without damage to nail, initial encounter (principal); Z88.0 Allergy status to penicillin; Z87.891 Personal history of nicotine dependence; X58.XXXA Exposure to other specified factors, initial encounter

== ENCOUNTER 2024-10-13 15:53 | Emergency (ER) | payer MEDICAID ==
[~2024-10-13] VITALS: Ht 190.5 cm; Wt 85.1 kg
[~2024-10-13 15:53] MED LIST changes: +ENDOCET 5-3251 EACH PO; +ULTRA LIDO60 GM TP
[2024-10-13 15:56] VITALS: BP 132/97
[2024-10-13] MEDS ORDERED: BENZONATATE200 MG PO (16:23)
[2024-10-13] MEDS ORDERED: Benzonatate 100 MG CAP PO ONE (16:30)
== END 2024-10-13 16:33 | disposition home or self-care (01) ==
LOC: ED 15:53
DX: G93.31 Postviral fatigue syndrome (principal)

== ENCOUNTER 2024-10-20 10:15 | Emergency (ER) | payer MEDICAID ==
[~2024-10-20] VITALS: Ht 190.5 cm; Wt 85.1 kg
[~2024-10-20 10:15] MED LIST changes: +BENZONATATE200 MG PO
[2024-10-20 10:32] LABS: BASO # 0.03 K/mm3 (0.02-0.10); EOS # 0.12 K/mm3 (0.04-0.40); EOS % 0.9 % (0.0-4.0); HEMATOCRIT 44.6 % (42.0-52.0); HEMOGLOBIN 14.9 g/dL (13.5-18.0); LYMPH# 1.81 K/mm3 (1.50-4.00); MEAN CELL VOLUME 92 fl (78-100); MEAN CORPUSCULAR HEMOGLOBIN 31 pg (27-31); MEAN CORPUSCULAR HGB CONC 33 g/dL (33-37); MEAN PLATELET VOLUME 8.5 fl (7.4-10.4); MONO # 1.26 K/mm3 (0.20-0.80); NEU # 10.36 K/mm3 (1.40-6.50); PLATELET COUNT 346 K/mm3 (130-400); RED BLOOD COUNT 4.83 M/mm3 (4.20-5.60); RED CELL DISTRIBUTION WIDTH 12.3 % (11.5-14.5); WHITE BLOOD COUNT 13.6 K/mm3 (4.8-10.8)
[2024-10-20 10:39] LABS: ALBUMIN 4.3 g/dL (3.5-5.0)
[2024-10-20 10:40] LABS: CALCIUM 9.5 mg/dL (8.3-10.5)
[2024-10-20 10:42] LABS: TOTAL PROTEIN 7.6 g/dL (6.4-8.3)
[2024-10-20 10:43] LABS: TOTAL BILIRUBIN 0.4 mg/dL (0.2-1.2)
[2024-10-20] MEDS ORDERED: NS IJ ONE (10:45)
[2024-10-20] MEDS ORDERED: LIDOCAINE HCL IJ ONE (10:45)
[2024-10-20] MEDS ORDERED: FLOMAX0.4 MG PO (11:01)
[2024-10-20] MEDS ORDERED: Ketorolac 30 MG/ML VIAL IV ONE (11:15)
[2024-10-20] MEDS ORDERED: NS IV ONE (11:15)
[2024-10-20] MEDS ORDERED: LIDOCAINE IV ONE (11:15)
[2024-10-20 12:37] VITALS: BP 123/89
== END 2024-10-20 12:28 | disposition left against medical advice (07) ==
LOC: ED 10:15
PROVIDERS: Family Medicine
DX: N20.0 Calculus of kidney (principal)
CPT/HCPCS: J1885; J7120